=== PATIENT | male | born 1975 | race Two or more races ===

== ENCOUNTER 2018-03-09 14:29 | Outpatient (CLI) | payer OTHER | END 2018-03-09 14:35 | disposition home or self-care (01) | LOC: RAD 14:29 | DX: R09.81 Nasal congestion (principal) ==

== ENCOUNTER 2018-03-09 15:19 | Outpatient (CLI) | payer OTHER | END 2018-03-09 15:20 | disposition home or self-care (01) | LOC: LAB 15:19 | DX: J11.1 Influenza due to unidentified influenza virus with other respiratory manifestations (principal); R50.81 Fever presenting with conditions classified elsewhere ==